=== PATIENT | female | born 1950 | race Caucasian/White ===

== ENCOUNTER 2018-03-04 16:40 | Emergency (ER) | payer OTHER ==
[~2018-03-04] VITALS: Ht 160 cm; Wt 99.8 kg
[~2018-03-04 16:40] MED LIST: ADVIL LIQUI-GE200 MG PO; APAP500 PO; ARIXTRA SUBQ; ASPIRIN325 PO; CALCIUM 600 +1 EA11 PO; CELEBREX 200 M200 M1 PO; CENTRUM SILVER1 EAC4 PO; CHLOR-TABLET4 MG PO; CO Q-10100 MG PO; COLACE 100 MG100 MG PO; ECOTRIN81 MG PO; GABAPENTIN 100100 MG PO; GLUCOSAMINE HC500 MG PO; GLUCOSAMINE-CH480 M1 PO; HYDROCODON-ACE1 EAC7 PO; HYDROCODONE-AP1 EAC6 PO; HYDROCODONE-APA1 TA1 PO; IRON325 PO; KEFLEX500 MG PO; LISINOPRIL30 MG PO; METAMUCIL1 EAC1 PO; METFORMIN HCL500 MG PO; MOM PO; MULTI VITAMIN1 EACH PO; NEXIUM40 MG PO; NITROFURANTOIN100 MG PO; NORCO 5-325 TA1 EACH PO; ONDANSETRON HCL4 M3 PO; OSTEO BI-FLEX1 EAC2 PO; OXYCODONE HCL5 M1 PO; PHENERGAN 25 MG25 MG PO; PRAVACHOL20 MG PO; PRILOSEC40 MG PO; PROBIOTIC DIGE1 EACH PO; TRAMADOL 50 MG50 MG PO; VITAMIN B-121000 MCG PO; VITAMINC500 PO; XARELTO10 MG PO; ZESTRIL20 MG PO
[2018-03-04] MEDS ORDERED: CLONIDINE0.1 PO (16:53)
[2018-03-04 17:04] LABS: ABSOLUTE BASOPHILS 0.1 thou/uL (0.0-0.2); ABSOLUTE EOSINOPHILS 0.2 thou/uL (0.0-0.7); ABSOLUTE MONOCYTES 0.6 thou/uL (0.0-1.2); ABSOLUTE NEUTROPHILS 6.2 thou/uL (1.6-8.1); BASOPHILS 0.6 %; EOSINOPHILS 2.3 %; HEMATOCRIT 38.1 % (37.0-47.0); HEMOGLOBIN 12.7 gm/dL (12.0-15.0); MCH 28.5 pg (26.0-34.0); MCHC 33.4 g/dL (28.0-37.0); MCV 85.3 fL (80.0-100.0); MONOCYTES 6.2 %; MPV 7.1 fl. (7.2-11.1); NUCLEATED RBCS 0 /100WBC; PLATELET COUNT* 229 thou/uL (150-400); POLYS 68.9 %; RBC 4.47 mil/uL (4.20-5.00); RDW-CV 14.1 % (10.5-14.5); WBC 8.9 thou/uL (4.0-11.0)
[2018-03-04 17:12] LABS: ANION GAP 10 mmol/L (7-16); BUN 18 mg/dL (7-18); CALCIUM 9.3 mg/dL (8.5-10.1); CHLORIDE 107 mmol/L (98-107); CO2 25 mmol/L (21-32); GLUCOSE 121 mg/dL (70-99); POTASSIUM 3.8 mmol/L (3.5-5.1); SODIUM 142 mmol/L (136-145)
[2018-03-04 17:19] LABS: ALBUMIN 3.6 g/dL (3.4-5.0); ALKALINE PHOSPHATASE 94 U/L (46-116); LIPASE 89 U/L (73-393); SGOT 22 U/L (15-37); SGPT 26 U/L (30-65); TOTAL BILIRUBIN 0.3 mg/dL (<0.1-1.0); TOTAL PROTEIN 7.3 g/dL (6.4-8.2); TROPONIN-I LEVEL <0.06 ng/mL (<0.06)
[2018-03-04] MEDS ORDERED: ONDANSETRON HCL4 M2 PO (18:03)
[2018-03-04 18:16] LABS: URINE BILIRUBIN NEGATIVE (Negative); URINE BLOOD NEGATIVE (Negative); URINE CLARITY CLEAR; URINE COLOR YELLOW; URINE GLUCOSE-RANDOM NEGATIVE (Negative); URINE KETONES NEGATIVE (Negative); URINE LEUKOCYTES-REFLEX NEGATIVE (Negative); URINE NITRITE-REFLEX NEGATIVE (Negative); URINE PROTEIN NEGATIVE (Negative); URINE UROBILINOGEN 0.2 E.U./dl (0.2-1.0)
[2018-03-04] MEDS ORDERED: PHENERGAN 25 MG25 M1 PO (18:18)
[2018-03-04 18:25] VITALS: BP 153/72
--- NOTE | 2018-03-05 14:36 | EKG ---
[place] [address] ELECTROCARDIOGRAM REPORT Name: STAR ESTRELLA Room: [facility]#: [id number] Admission: 03/04/18 Attend Phys: Discharge: 03/04/18 Date of : 46 Report #: [id number] THIS REPORT FOR: //name// [facility] ED Test Date: 2018-03-04 Test Time: 16:50:41 Pat Name: STAR ESTRELLA Department: Room: Gender: F [employer] Application Developer: Yoana TILLMAN : 1950 Requested By: Brenna Thomas Order Number: [id number] MD: David Alcaraz Measurements Intervals [place] Rate: 74 P: 20 OR: 171 QRS: -23 QRSD: 100 T: 22 QT: 373 QTc: 414 Interpretive Statements Sinus rhythm Abnormal R-wave progression, early transition Left ventricular hypertrophy Compared to ECG 07/16/2017 21:32:05 No significant changes Electronically Signed On 03-05-2018 14:36:27 CDT by David Alcaraz [email or web address] <ELECTRONICALLY SIGNED> By: Dale Alcaraz MD, [facility] 03/05/18 1436 1650 1650 Dale Alcaraz MD, [facility] /EPI
== END 2018-03-04 18:25 | disposition home or self-care (01) ==
LOC: M.ERS 16:40
PROVIDERS: Physician Assistant
DX: I10 Essential (primary) hypertension (principal); M19.90 Unspecified osteoarthritis, unspecified site; G43.909 Migraine, unspecified, not intractable, without status migrainosus; M79.7 Fibromyalgia; Z90.710 Acquired absence of both cervix and uterus; Z88.1 Allergy status to other antibiotic agents; Z88.5 Allergy status to narcotic agent; Z88.8 Allergy status to other drugs, medicaments and biological substances